=== PATIENT | male | born 1985 | race Hispanic/Latino ===

== ENCOUNTER 2018-07-19 15:38 | Emergency (ER) | payer OTHER ==
[~2018-07-19] VITALS: Ht 177.8 cm; Wt 106.6 kg
== END 2018-07-19 16:15 | disposition home or self-care (01) ==
LOC: FSED 15:38
DX: L02.212 Cutaneous abscess of back [any part, except buttock and flank] (principal); L03.312 Cellulitis of back [any part except buttock and flank]
CPT/HCPCS: 99282